=== PATIENT | female | born 1990 | race Hispanic/Latino ===

== ENCOUNTER 2021-10-23 15:38 | Emergency (ER) | payer OTHER ==
[~2021-10-23] VITALS: Ht 172.7 cm; Wt 75.3 kg
[~2021-10-23 15:38] MED LIST: EXPECTA PRENAT1 EACH
[2021-10-23] MEDS ORDERED: CEPHALEXIN500 M1 PO (18:01)
== END 2021-10-23 18:14 | disposition home or self-care (01) ==
LOC: ED 15:38
DX: N39.0 Urinary tract infection, site not specified (principal)
CPT/HCPCS: 81001; 99284; A9270